=== PATIENT | female | born 1945 | race Caucasian/White ===

== ENCOUNTER 2017-10-06 06:45 | Outpatient (CLI) | payer MEDICARE ==
[2017-10-05 09:16] VITALS: BMI 26.9
[~2017-10-06 06:45] MED LIST: FLU VACC TS2017-18 (>65YR) 0.5 ML SYRINGE IM ONE; Prevnar 13-Val Conj/PF 0.5 ML SYRINGE IM ONE
[2017-10-06 08:20] VITALS: BP 141/81; TEMP 97
--- NOTE | 2017-10-06 10:30 | RAD ---
LUMBAR MYELOGRAM: Date: 10/06/17 HISTORY: Lumbar radiculopathy. COMPARISON: None. EXPOSURE: 0.6 minutes. 289.6 mGy*cm^2. FINDINGS: 2 views lumbar spine: Entry Table Operator lumbar spine radiograph demonstrates five lumbar-type vertebral bodies. Vertebral body height is maintained. There is some osteophyte formation without significant loss of d isc space height. There is retrolisthesis of L2 upon L3. Atherosclerosis of aorta is identified. Sutu re line in the right lower quadrant is noted. Successful lumbar puncture for intrathecal contrast administration. A total of 5 mL of Isovue-M 300 c ontrast was administered intrathecally. The patient tolerated the procedure well. No immediate or pos tprocedure complication. TECHNIQUE: Consent obtained to perform a lumbar puncture for intrathecal contrast administration. Patient's back was evaluated. The L3-L4 level was deemed appropriate. Skin was prepped and draped in the sterile fa shion. 1% lidocaine, buffered with sodium bicarbonate, was used for local anesthesia. Under fluorosco pic guidance, a 22 gauge spinal needle was advanced into the CSF space. Via short tubing catheter, a total of 5 mL of Isovue-M 300 contrast was administered intrathecally. The patient tolerated the proc edure well. No immediate or postprocedure complication. IMPRESSION: Successful lumbar puncture for intrathecal contrast administration. Please refer to post myelogram CT for further detail. POS: [facility]
--- NOTE | 2017-10-06 10:36 | CT ---
POST MYELOGRAM LUMBAR SPINE CT: Date: 10/06/17 HISTORY: Lumbar radiculopathy. COMPARISON: None. TECHNIQUE: Post myelogram lumbar spine CT is performed in the axial plane. Reformatted images are submitted for interpretation. FINDINGS: No retroperitoneal mass, lymphadenopathy, or hematoma. Symmetric attenuation of psoas muscles. Athero sclerosis of a nonaneurysmal aorta. Visualized solid organs and alimentary canal is unremarkable. Conus medullaris terminates at the L1 level. Lumbar spine vertebral body height is maintained. No fracture. No spondylolisthesis. 2.4 mm retrolist hesis of L2 upon L3. Visualized bony pelvis is unremarkable. 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 T11-T12 and T12-L1: No high grade central canal stenosis or significant neural foraminal narrowing. L1-L2: No high grade central canal stenosis. Neural foramina are patent. L2-L3: Vacuum disc phenomenon. Minimal generalized disc bulge. Minimal ligamentum flavum thickening. No sign ificant central canal stenosis. Right neural foramen is patent. Mild left foraminal narrowing due to disc material. L3-L4: No significant posterior disc abnormality. No significant central canal stenosis. Right neural forame n is patent. Mild left foraminal narrowing. L4-L5: There is a broad based disc bulge with disc material encroaching upon both subarticular zones. Mild m ass effect without obscuration of bilateral traversing L5 nerve roots. Overall, there is mild to mode rate central canal stenosis. There is bilateral facet hypertrophy. Mild bilateral foraminal narrowing . L5-S1: No significant posterior disc abnormality. There is bilateral facet hypertrophy. Vacuum joint phenome non in both facet joints noted. No high grade central canal stenosis. Mild bilateral foraminal narrow ing. IMPRESSION: Degenerative changes in the lumbar spine as above. No high grade central canal stenosis or high grade foraminal narrowing. POS: [facility]
== END 2017-10-06 09:40 | disposition home or self-care (01) ==
LOC: RAD 06:45
PROVIDERS: ATTEND Neurological Surgery
DX: M47.26 Other spondylosis with radiculopathy, lumbar region (principal)
CPT/HCPCS: 62304; 72132

== ENCOUNTER 2017-10-20 09:53 | Outpatient (CLI) | payer MEDICARE ==
[2017-10-20 11:44] LABS: Hemoglobin 14.9 g/dL (12.0-16.0); Mean Corpuscular HGB CONC 33.9 g/dL (32.0-36.0); Mean Corpuscular Hemoglobin 30.8 pg (27.0-31.0); Mean Corpuscular Volume 90.7 fl (81.0-99.0); Mean Platelet Volume 6.8 fL (7.4-10.4); Platelet Count 261 thou/uL (130-400); RBC Distribution Width 11.5 % (11.5-14.5); Red Blood Cell (RBC) Count 4.83 mill/uL (4.20-5.40); White Blood Cell (WBC) Count 6.8 thou/uL (4.8-10.8)
[2017-10-20 12:04] LABS: Anion Gap 12 mmol/L (10-20); BUN (Urea Nitrogen) 20 mg/dL (9.8-20.1); Calc. Creatinine Clearance 0 mL/min (70-130); Calcium 9.8 mg/dL (7.8-10.44); Carbon Dioxide 23 mmol/L (23-31); Chloride 108 mmol/L (98-107); Estimated GFR-MDRD 66; Glucose 103 mg/dL (83-110); Potassium 4.2 mmol/L (3.5-5.1); Sodium 139 mmol/L (136-145)
--- NOTE | 2017-10-22 18:29 | EKG ---
Test Reason : Blood Pressure : / mmHG Vent. Rate : 067 BPM Atrial Rate : 067 BPM P-R Int : 164 ms QRS Dur : 080 ms QT Int : 402 ms P-R-T Axes : 062 -16 043 degrees QTc Int : 424 ms Normal sinus rhythm Septal infarct , age undetermined Abnormal ECG No previous ECGs available Confirmed by DIAMOND STAFFORD, DR. Ng ([id number]) on 10/22/2017 6:28:54 PM Referred By: GERALD Confirmed By:DR. Hernandez FIELDS MD
== END 2017-10-20 09:54 | disposition home or self-care (01) ==
LOC: LABBT 09:53
PROVIDERS: ATTEND Neurological Surgery
DX: Z01.818 Encounter for other preprocedural examination (principal); M54.16 Radiculopathy, lumbar region
CPT/HCPCS: 80048; 85027; 93005; 93010

== ENCOUNTER 2017-10-24 05:50 | Day surgery (SDC) | payer MEDICARE ==
[2017-10-20 10:18] VITALS: BMI 26.9
[2017-10-24] MEDS ORDERED: CEFAZOLIN/Water 2 GM/20 ML SYRINGE ONE (07:02)
[2017-10-24] MEDS ORDERED: Fentanyl 250 MCG/5 ML VIAL ONE (07:45)
--- NOTE | 2017-10-24 09:23 | OP ---
DATE OF PROCEDURE: 10/24/2017 SURGEON: Damián Gunter M.D. FACILITY SERVICE MANAGER: Waylon Torres PROCEDURE: L4-5 laminectomy. PROCEDURE IN DETAIL: The patient was brought to the operating room and intubated. She was rolled in the prone position on gel-filled chest rolls. Incision made exposing L4 and L5 and our level was co nfirmed by x-ray. We performed complete L5 and inferior L4 laminectomy centrally and then extended i nto the right completely decompress the right L4-5 lateral recess. A complete decompression of right L5 was achieved. The wound was extensively irrigated, immaculate hemostasis was secured. Vancomyci n powder was applied and the wound was closed in anatomic layers.
[2017-10-24] MEDS ORDERED: PHENYLEPHRINE-NS 100 MCG/ML 10 ML SYRINGE ONE (15:44)
[2017-10-24] MEDS ORDERED: ePHEDrine/0.9% NaCl/PF SYRINGE 50 mg/10 ml ONE (15:44)
[2017-10-24] MEDS ORDERED: Ondansetron HCl/PF 4 MG/2 ML Vial ONE (15:44)
[2017-10-24] MEDS ORDERED: Glycopyrrolate 0.2 MG/ML 5 ML SYRINGE ONE (15:44)
[2017-10-24] MEDS ORDERED: Propofol 200 MG/20 ML VIAL ONE (15:44)
[2017-10-24] MEDS ORDERED: Lidocaine 1% PF 5 ML VIAL ONE (15:44)
[2017-10-24] MEDS ORDERED: Dexamethasone 20 MG/5 ML VIAL ONE (15:44)
== END 2017-10-24 11:35 | disposition home or self-care (01) ==
LOC: SDC 05:50
PROVIDERS: ATTEND Neurological Surgery
PROC: 01NB0ZZ Release Lumbar Nerve, Open Approach (ICD-10-PCS; principal; 2017-10-24)
DX: M54.16 Radiculopathy, lumbar region (principal); F32.9 Major depressive disorder, single episode, unspecified; F41.9 Anxiety disorder, unspecified; M19.90 Unspecified osteoarthritis, unspecified site; Z88.5 Allergy status to narcotic agent; Z98.890 Other specified postprocedural states
CPT/HCPCS: 76001; J0131; J1100; J2001; J2405; J2704; J3010; J3370

== ENCOUNTER 2018-05-29 09:27 | Outpatient (CLI) | payer MEDICARE | END 2018-05-29 09:28 | disposition home or self-care (01) | LOC: BICMAMMO 09:27 | PROVIDERS: ATTEND Family Medicine | DX: Z12.31 Encounter for screening mammogram for malignant neoplasm of breast (principal); Z80.3 Family history of malignant neoplasm of breast; Z85.038 Personal history of other malignant neoplasm of large intestine | CPT/HCPCS: 77063; 77067 ==

== ENCOUNTER 2019-05-30 08:55 | Outpatient (CLI) | payer MEDICARE ==
--- NOTE | 2019-05-30 09:55 | MMO ---
Bilateral MAMMO Bilat Screen [facility]. CLINICAL HISTORY: Patient is 73 years old and is seen for screening. The patient has the following family history of breast cancer: mother and sister. The patient has a history of colon cancer at age 59. VIEWS: The views performed were: bilateral craniocaudal with tomosynthesis and bilateral mediolateral oblique with tomosynthesis. FILMS COMPARED: The present examination has been compared to prior imaging studies performed at [facility] on 05/23/2015, 05/25/2016, 05/27/2017 and 05/29/2018. This study has been interpreted with the assistance of computer-aided detection. MAMMOGRAM FINDINGS: There are scattered fibroglandular densities. There are no suspicious masses, suspicious calcifications, or new areas of architectural distortion. IMPRESSION: THERE IS NO MAMMOGRAPHIC EVIDENCE OF MALIGNANCY. A ROUTINE FOLLOW-UP MAMMOGRAM IN 1 YEAR IS RECOMMENDED. THE RESULTS OF THIS EXAM WERE SENT TO THE PATIENT. ACR BI-RADS Category 1 - Negative MAMMOGRAPHY NOTE: 1. A negative mammogram report should not delay a biopsy if a dominant of clinically suspicious mass is present. 2. Approximately 10% to 15% of breast cancers are not detected by mammography. 3. Adenosis and dense breasts may obscure an underlying neoplasm. Reported by: GUANAKO NEGRON MD Electonically Signed: [id number]
== END 2019-05-30 08:56 | disposition home or self-care (01) ==
LOC: BICMAMMO 08:55
PROVIDERS: ATTEND Family Medicine
DX: Z12.31 Encounter for screening mammogram for malignant neoplasm of breast (principal); Z80.3 Family history of malignant neoplasm of breast; Z85.038 Personal history of other malignant neoplasm of large intestine
CPT/HCPCS: 77063; 77067

== ENCOUNTER 2020-06-02 09:08 | Outpatient (CLI) | payer MEDICARE ==
--- NOTE | 2020-06-02 09:40 | MMO ---
Bilateral MAMMO Bilat Screen [facility]. CLINICAL HISTORY: Patient is 74 years old and is seen for screening. The patient has the following family history of breast cancer: mother, malignant (generic); sister, malignant (generic) and niece, malignant (generic). The patient has a history of colon cancer at age 59. VIEWS: The views performed were: bilateral craniocaudal with tomosynthesis and bilateral mediolateral oblique with tomosynthesis. FILMS COMPARED: The present examination has been compared to prior imaging studies performed at [facility] on 05/25/2016, 05/27/2017, 05/29/2018 and 05/30/2019. This study has been interpreted with the assistance of computer-aided detection. MAMMOGRAM FINDINGS: There are scattered fibroglandular densities. There are no suspicious masses, suspicious calcifications, or new areas of architectural distortion. IMPRESSION: THERE IS NO MAMMOGRAPHIC EVIDENCE OF MALIGNANCY. A ROUTINE FOLLOW-UP MAMMOGRAM IN 1 YEAR IS RECOMMENDED. THE RESULTS OF THIS EXAM WERE SENT TO THE PATIENT. ACR BI-RADS Category 1 - Negative MAMMOGRAPHY NOTE: 1. A negative mammogram report should not delay a biopsy if a dominant of clinically suspicious mass is present. 2. Approximately 10% to 15% of breast cancers are not detected by mammography. 3. Adenosis and dense breasts may obscure an underlying neoplasm. Reported by: GUANAKO NEGRON MD Electonically Signed: [id number]
== END 2020-06-02 09:09 | disposition home or self-care (01) ==
LOC: BICMAMMO 09:08
PROVIDERS: ATTEND Family Medicine
DX: Z12.31 Encounter for screening mammogram for malignant neoplasm of breast (principal); Z80.3 Family history of malignant neoplasm of breast; Z85.038 Personal history of other malignant neoplasm of large intestine
CPT/HCPCS: 77063; 77067

== ENCOUNTER 2021-06-04 09:10 | Outpatient (CLI) | payer MEDICARE | END 2021-06-04 09:11 | disposition home or self-care (01) | LOC: BICMAMMO 09:10 | PROVIDERS: ATTEND Family Medicine | DX: Z12.31 Encounter for screening mammogram for malignant neoplasm of breast (principal); Z80.3 Family history of malignant neoplasm of breast; Z85.038 Personal history of other malignant neoplasm of large intestine | CPT/HCPCS: 77063; 77067 ==

== ENCOUNTER 2021-08-14 07:57 | Outpatient (CLI) | payer MEDICARE | END 2021-08-14 07:58 | disposition home or self-care (01) | LOC: TBSIIMAG 07:57 | PROVIDERS: ATTEND Physician Assistant | DX: M54.2 Cervicalgia (principal); R26.89 Other abnormalities of gait and mobility; M47.812 Spondylosis without myelopathy or radiculopathy, cervical region; M50.21 Other cervical disc displacement, high cervical region; M48.02 Spinal stenosis, cervical region; M47.814 Spondylosis without myelopathy or radiculopathy, thoracic region | CPT/HCPCS: 72141; 72146 ==

== ENCOUNTER 2022-06-07 09:45 | Outpatient (CLI) | payer MEDICARE | END 2022-06-07 09:46 | disposition home or self-care (01) | LOC: BICMAMMO 09:45 | PROVIDERS: ATTEND Family Medicine | DX: Z12.31 Encounter for screening mammogram for malignant neoplasm of breast (principal); Z85.038 Personal history of other malignant neoplasm of large intestine; Z80.3 Family history of malignant neoplasm of breast | CPT/HCPCS: 77063; 77067 ==

== ENCOUNTER 2023-04-26 01:20 | Emergency (ER) | payer MEDICARE ==
[2023-04-26 01:52] LABS: #Basophils 0.1 thou/uL (0.0-0.2); #Eosinphils 0.2 thou/uL (0.0-0.7); #Monocytes 0.7 thou/uL (0.11-0.59); #Neutrophils 12.8 thou/uL (1.40-6.50); %Basophils 0.5 % (0.0-1.0); %Eosinophils 1.3 % (0.0-10.0); %Lymphocytes 24.4 % (21.0-51.0); %Monocytes 3.6 % (0.0-10.0); %Neutrophils 69.8 % (42.0-75.0); Hematocrit 43.7 % (36.0-47.0); Hemoglobin 14.4 g/dL (12.0-16.0); Mean Corpuscular Hemoglobin 29.8 pg (27.0-31.0); Mean Corpuscular Volume 90.3 fl (78.0-98.0); Mean Platelet Volume 9.8 fL (7.4-10.4); Platelet Count 248 10x3/uL (130-400); RBC Distribution Width 13.1 % (11.5-14.5); Red Blood Cell (RBC) Count 4.84 mill/uL (4.20-5.40); White Blood Cell (WBC) Count 18.3 10x3/uL (4.8-10.8)
[2023-04-26 02:08] LABS: INR-International Normal Ratio 1.1; Prothrombin Time 14.5 sec (12.0-14.7)
[2023-04-26 02:09] LABS: PTT 27.8 sec (22.9-36.1)
[2023-04-26 02:16] LABS: ALT (SGPT) 19 U/L (8-55); AST (SGOT) 19 U/L (5-34); Acetaminophen Less than 10 mcg/mL (10.0-30.0); Albumin 3.6 g/dL (3.4-4.8); Alcohol Less than 10.0 mg/dL (Less than 10); Alkaline Phosphatase 84 U/L (40-110); Anion Gap 17 mmol/L (10-20); BUN (Urea Nitrogen) 23 mg/dL (9.8-20.1); Bilirubin, Total 0.5 mg/dL (0.2-1.2); Calc. Creatinine Clearance 0 mL/min (70-130); Calcium 8.7 mg/dL (7.8-10.44); Carbon Dioxide 16 mmol/L (23-31); Chloride 108 mmol/L (98-107); Estimated GFR 62; Globulin 2.7 g/dL (2.4-3.5); Glucose 206 mg/dL (83-110); Potassium 3.3 mmol/L (3.5-5.1); Protein, Total 6.3 g/dL (5.8-8.1); Salicylate Less than 8.0 mg/dL (15.0-30.0); Sodium 138 mmol/L (136-145)
[2023-04-26 02:18] LABS: Troponin I 0.024 ng/mL (< 0.028)
[2023-04-26] MEDS ORDERED: Sodium Bicarb 50 MEQ/50 ML VIAL ONE ×2 (02:21→02:23)
[2023-04-26 02:46] LABS: Bacteria/HPF None Seen HPF (None Seen); Bilirubin Negative (Negative); Blood, Urine Negative (Negative); CAUTI Indications for Culture Alt mental st,lethar; Clarity Clear (Clear); Glucose, Urine (Dipstick) 300 mg/dL (Negative); Ketone, Urine Trace mg/dL (Negative); Leukocyte Negative Leu/uL (Negative); Nitrite Negative (Negative); Protein, Urine (Dipstick) 100 mg/dL (Neg-Trace); RBC/HPF 0-3 HPF (0-3); Specific Gravity, Urine 1.012 (1.002-1.036); Squamous Epithelial None Seen HPF (0-3); Urobilinogen Normal mg/dL (Less than 2); WBC/HPF 0-3 HPF (0-3); pH, Urine 6.5 (5.0-9.0)
[2023-04-26 02:50] LABS: Amphetamine Not Detected (NotDetected); Barbiturates Screen Not Detected (NotDetected); Benzodiazepine Screen Not Detected (NotDetected); Cocaine Metabolite Screen Not Detected (NotDetected); Methadone Not Detected (NotDetected); Methamphetamine Not Detected (NotDetected); Opiate Screen Not Detected (NotDetected); Oxycodone Screen Not Detected (NotDetected); Phencyclidine (PCP) Not Detected (NotDetected); THC/Cannabinoid Screen Not Detected (NotDetected); Tricyclic Screen Not Detected (NotDetected)
[2023-04-26 02:52] LABS: Urine Culture Reflex No No
[2023-04-26 03:08] LABS: SARS-CoV-2 NAA Rapid Test Not Detected (NotDetected)
== END 2023-04-26 03:54 | disposition expired ==
LOC: ERS 01:20
DX: I62.00 Nontraumatic subdural hemorrhage, unspecified (principal); I61.9 Nontraumatic intracerebral hemorrhage, unspecified; E78.5 Hyperlipidemia, unspecified; I10 Essential (primary) hypertension; Z20.822 Contact with and (suspected) exposure to COVID-19
CPT/HCPCS: 0240U; 31500; 51702; 70450; 71045; 80306; 80307; 81001; 82962; 83605; 83880; 84484; 85610; 85730; 87040; 93005; 94002; 96374; 99285; 36415; 36416; 80053; 84443; 85025